=== PATIENT | male | born 1980 | race Caucasian/White ===

== ENCOUNTER → 2022-06-10 | Day surgery (SDC) | payer OTHER ==
[~2022-06-10] VITALS: Ht 185.4 cm; Wt 127.0 kg
[~2022-06-10] MED LIST: APPLE CIDER VI500 MG PO; ATENOLOL25 M1 PO; HCTZ25 MG PO; LOVAZA1 GM PO; MILK THISTLE500 MG PO; NP THYROID90 MG PO; PRILOSEC20 MG PO; VENTOLIN HFA IN18 GM INH
== END | disposition home or self-care (01) ==
LOC: FAS 07:03
DX: D64.9 Anemia, unspecified (principal); K57.30 Diverticulosis of large intestine without perforation or abscess without bleeding
CPT/HCPCS: J2250; J2704; J7120